=== PATIENT | female | born 1990 | race African-American/Black ===

== ENCOUNTER 2017-03-01 14:51 | Emergency (ER) | payer MEDICAID ==
[~2017-03-01] VITALS: Ht 157.5 cm; Wt 90.2 kg
[~2017-03-01 14:51] MED LIST: MACR100C2 PO; METR-1 PO
[2017-03-01 15:09] VITALS: BP 90/61; PULSE 76; RESP 16; TEMP 98.2; O2SAT 99
[2017-03-01 15:25] LABS: BLOOD, URINE NEG (NEG); GLUCOSE,URINE NEG (NEG); KETONE, URINE NEG (NEG); NITRITE,URINE NEG (NEG); PH, URINE 7.5 (5.0-8.5)
[2017-03-01 15:33] LABS: MUCUS URINE FEW /lpf (OCC); URINE COLOR YELLOW (YELLW/STRAW)
[2017-03-01 15:34] LABS: BACTERIA, URINE FEW /hpf; COMMENT (UR) CULTURE INDICATED; CULTURE IF INDICATED CULTURE INDICATED; RBC, URINE 0-3 /hpf (0-3); SQUAMOUS EPITHELIAL CELL URINE > 8 /hpf (0-5)
[2017-03-01] MEDS ORDERED: BACT800T5 PO (16:13)
--- NOTE | 2017-03-01 16:14 | PD ---
HPI Chief Complaint: Complaint Time Seen by Provider: 15:56 Travel History International Travel<30 days: No Contact w/Intl Traveler<30days: No Traveled to known affect area: No History of Present Illness HPI 26-year-old female dysuria hesitancy and dribbling for a few days. severity moderate. timing intermittent. No fever nausea vomiting. No vaginal bleeding or discharge. LMP 1 week prior. PFSH Past Medical History Medical History: Denies Significant Hx Diminished Hearing: No Immunizations Current: Yes Tetanus Vaccination: > 5 Years Influenza Vaccination: No ?: Not LMP: LAST WEEK Past Surgical History Section: Yes (X 1) Social History Alcohol Use: No Tobacco Use: No Substance Use: No Allergies-Medications (Allergen,Severity, Reaction): Coded Allergies: No Known Allergies (Unverified , 08/20/16) Reported Meds & Prescriptions Reported Meds & Active Scripts Active Bactrim DS (Sulfamethoxazole-Trimethoprim) 800-160 Mg Tab 1 Tab PO BID Review of Systems Except as stated in HPI: all other systems reviewed are Neg Physical Exam Narrative GENERAL: 26 yo F, WNWD, NAD SKIN: Warm and dry. HEAD: Normocephalic. EYES: No scleral icterus. No injection or drainage. NECK: Supple, trachea midline. No JVD or lymphadenopathy. GASTROINTESTINAL: Soft. Minimal TTP suprapubic abdomen. MUSCULOSKELETAL: No cyanosis, or edema. BACK: Nontender without obvious deformity. No CVA tenderness. Data Data Last Documented VS Vital Signs Date Time Temp Pulse Resp B/P Pulse Ox O2 Delivery O2 Flow Rate FiO2 03/01/17 15:09 98.2 76 16 90/61 99 VS reviewed Orders Urinalysis - C+S If Indicated (03/01/17 15:11) Urine Culture (03/01/17 15:00) Ed Urine Pregnancytest Poc (03/01/17 16:17) Labs Laboratory Tests Test 03/01/17 15:00 Urine Color YELLOW Urine Turbidity CLEAR Urine pH 7.5 Urine Specific [place] 1.021 Urine Protein NEG mg/dL Urine Glucose (UA) NEG mg/dL Urine Ketones NEG mg/dL Urine Occult Blood NEG Urine Nitrite NEG Urine Bilirubin NEG Urine Leukocyte Esterase SMALL Urine RBC 0-3 /hpf Urine WBC 9-14 /hpf Urine Squamous Epithelial > 8 /hpf Cells Urine Bacteria FEW /hpf Urine Mucus FEW /lpf Microscopic Urinalysis Comment CULTURE INDICATED MDM Medical Decision Making Medical Screen Exam Complete: Yes Emergency Medical Condition: Yes Medical Record Reviewed: Yes Differential Diagnosis menstruation, cystitis, std Narrative Course UA: uti present, bactrim script upreg negative return precautions discussed, pt ready for discharge. Diagnosis Primary Impression: Cystitis Referrals: Primary Care Physician 2 days Additional Instructions: You have a choice when it comes to health care, and we are glad that you chose [facility]. Hopefully, we have met your expectations on today's visit. You are welcome to return to [facility] at any time, as we are committed to meeting the health care needs of our community. Med/Other Pt SpecificInfo: Prescription(s) given Scripts Sulfamethoxazole-Trimethoprim (Bactrim DS)800-160 Mg Tab1 Tab PO BID #6 TAB Ref 0 Prov:Vincenzo Salmon MD 03/01/17 Disposition: 01 DISCHARGE HOME Condition: Stable Vincenzo Salmon MD March 01, 2017 16:13
== END 2017-03-01 16:31 | disposition home or self-care (01) ==
LOC: PHED 14:51
DX: N30.90 Cystitis, unspecified without hematuria (principal)
CPT/HCPCS: 81001; 84703; 86403; 87086; 99283

== ENCOUNTER 2018-02-15 23:36 | Emergency (ER) | payer MEDICAID ==
[~2018-02-15] VITALS: Ht 157.5 cm; Wt 86.6 kg
[~2018-02-15 23:36] MED LIST changes: +BACT800T5 PO; -MACR100C2 PO; -METR-1 PO
[2018-02-15 23:45] VITALS: BP 127/62; PULSE 63; RESP 16; TEMP 97.7; O2SAT 99
--- NOTE | 2018-02-15 23:50 | PD ---
HPI Chief Complaint: Cold / Flu Symptoms Time Seen by Provider: 23:49 Travel History International Travel<30 days: No Contact w/Intl Traveler<30days: No Traveled to known affect area: No History of Present Illness HPI 27-year-old female came to the emergency room with history of cold-like symptoms. Patient says this is been going on for past 2-3 days. She has some cough and runny nose. Vital signs are stable. Patient denies having any fever or sick contacts. She is otherwise a healthy person. [facility] Past Medical History Narrative Medical List of her past medical, surgical, social and family history is reviewed from the nursing note. Diminished Hearing: No Immunizations Current: Yes ?: Not LMP: 01/16/18 Past Surgical History Section: Yes (X 1) Social History Alcohol Use: No Tobacco Use: No Substance Use: No Allergies-Medications (Allergen,Severity, Reaction): Coded Allergies: No Known Allergies (Verified Adverse Reaction, Unknown, 02/15/18) Comments No known drug allergies. Reported Meds & Prescriptions Reported Meds & Active Scripts Active Zyrtec (Cetirizine HCl) 10 Mg Capsule 1 Tab PO ONCE 30 Days Bactrim DS (Sulfamethoxazole-Trimethoprim) 800-160 Mg Tab 1 Tab PO BID Narrative Medication List of her home medications reviewed from the nursing note. Review of Systems Except as stated in HPI: all other systems reviewed are Neg HENT: Positive: Rhinorrhea Respiratory: Positive: Cough Physical Exam Narrative GENERAL: Awake, alert, no obvious distress SKIN: Focused skin assessment warm/dry. HEAD: Atraumatic. Normocephalic. EYES: Pupils equal and round. No scleral icterus. No injection or drainage. ENT: No nasal bleeding or discharge. Mucous membranes pink and moist. NECK: Trachea midline. No JVD. CARDIOVASCULAR: Regular rate and rhythm. No murmur appreciated. RESPIRATORY: No accessory muscle use. Clear to auscultation. Breath sounds equal bilaterally. GASTROINTESTINAL: Abdomen soft, non-tender, nondistended. Hepatic and splenic margins not palpable. MUSCULOSKELETAL: No obvious deformities. No clubbing. No cyanosis. No edema. NEUROLOGICAL: Awake and alert. No obvious cranial nerve deficits. Motor grossly within normal limits. Normal speech. PSYCHIATRIC: Appropriate mood and affect; insight and judgment normal. Data Data Last Documented VS Orders Orders Ed Discharge Order (02/15/18 23:56) MDM Medical Decision Making Medical Screen Exam Complete: Yes Emergency Medical Condition: Yes Medical Record Reviewed: Yes Differential Diagnosis Seasonal allergies Narrative Course 12 AM given the lack of fever and clinically looking fine with normal physical exam I think this is more goes in favor of seasonal allergies. I will discharge her home with prescription for her antiallergy medication. Procedures EKG Prior to Arrival: No Diagnosis Primary Impression: Seasonal allergies Referrals: [facility] Additional Instructions: Please follow-up with the walk-in clinic whose name and address has been given to you on the discharge paperwork. For minor complaint he should really follow up with a primary care or even go to the same walk-in clinic instead of coming to the emergency room. Take the medication as per the prescription direction. Med/Other Pt SpecificInfo: Prescription(s) given Scripts Cetirizine HCl (Zyrtec) 10 Mg Capsule 1 TAB PO ONCE for 30 Days Prov: Buster Awad MD 02/15/18 Buster Awad MD February 15, 2018 23:50
[2018-02-15] MEDS ORDERED: CETI10CA3 PO (23:56)
== END 2018-02-16 00:10 | disposition home or self-care (01) ==
LOC: PHEFT 23:36
DX: J30.2 Other seasonal allergic rhinitis (principal)
CPT/HCPCS: 99283